=== PATIENT | female | born 1940 ===

== ENCOUNTER 2024-02-13 09:30 | Outpatient (OUT) | payer SELFPAY ==
[2024-02-13 10:20] LABS: Ammonia 24 umol/L (11-32)
[2024-02-13 10:58] LABS: Valproic Acid 22.6 ug/mL (50.0-100.0)
== END 2024-02-13 09:31 | disposition home or self-care (01) ==
PROVIDERS: PCP Nurse Practitioner Adult Health; Visit Provider Nurse Practitioner Adult Health
DX: E72.20 Disorder of urea cycle metabolism, unspecified (principal)
CPT/HCPCS: 36415; 80164; 82140